=== PATIENT | female | born 1985 | race Caucasian/White ===

== ENCOUNTER 2017-11-10 06:43 | Inpatient (IN) ==
[2017-11-10] MEDS ORDERED: ceFAZolin 2,000 MG in PREMIX 1 EACH IV ONE (07:08)
[2017-11-10] MEDS ORDERED: CITRIC ACID/SODIUM CITRATE 30 ML UDCUP PO ONE (07:08)
[2017-11-10] MEDS ORDERED: FAMOTIDINE 20 MG/2 ML VIAL IV ONE (07:08)
[2017-11-10] MEDS: LACTATED RINGERS 1,000 ML IV SCH ×4 (07:41→23:52)
[2017-11-10] MEDS ORDERED: OXYTOCIN/LR 20 UNIT/1,000 ML BAG IV ONE ×3 (07:50→15:31)
[2017-11-10 07:53] LABS: Basophils # 0.1 10*3/uL (0.0-0.2); Basophils % 0.5 % (0.0-0.8); Eosinophils # 0.1 10*3/uL (0.0-0.87); Eosinophils % 1.2 % (0.00-10.9); Hematocrit 38.6 VOL% (35.7-47.0); Immature Granulocytes % 0.9 %; Immature Granulocytes Absolute 0.08 #; Lymphocytes % 21.4 % (21.3-54.2); Mean Corpuscular HGB Conc 33.7 GM/DL (32-36); Mean Corpuscular Hemoglobin 28 PG (27-34); Mean Platelet Volume 10.7 FL (9.6-12.0); Monocytes # 0.4 10*3/uL (0.11-0.8); Monocytes % 4.8 % (1.7-12.7); Neutrophils # 6.5 10*3/uL (1.4-7.4); Neutrophils % 71.2 % (38.7-73.9); Platelet Count 240 T/CUMM (130-400); Red Blood Count 4.65 MC/CUMM (3.8-5.5); Red Cell Distribution Width 14.8 % (9.3-17.3); White Blood Count 9.2 T/CUMM (4-12)
[2017-11-10 08:05] LABS: INR 0.9; PT Patient Result 9.5 SECS; Partial Thromboplastin Time 26.4 SECS (0-40)
[2017-11-10 08:30] LABS: Alanine Aminotransferase 14 U/L (13-56); Alkaline Phosphatase 120 U/L (45-117); Aspartate Amino Transferase 19 U/L (0-37); Calcium 8.6 MG/DL (8.5-10.1)
[2017-11-10 08:31] LABS: Albumin 2.6 G/DL (3.4-5.0); Bilirubin,Total < 0.39 MG/DL (0.2-1.0); Blood Urea Nitrogen 8 MG/DL (7-18); Glucose 73 MG/DL (74-106); Osmolality,Calculated 273.5 MOS/KG (273-304); Potassium 3.9 MMOL/L (3.5-5.1); Sodium 139 MMOL/L (136-145); Total Protein 6.6 G/DL (6.4-8.3)
[2017-11-10 08:49] LABS: Bilirubin,Direct < 0.100 MG/DL (0.0-0.20); Uric Acid 5.4 MG/DL (2.6-6.0)
[2017-11-10] MEDS ORDERED: ACETAMINOPHEN 325 MG TABLET PO PRN (15:29)
[2017-11-10] MEDS ORDERED: SIMETHICONE CHEW 80 MG TABLET PO PRN (15:29)
[2017-11-10] MEDS ORDERED: ONDANSETRON 4 MG/2 ML VIAL IV PRN (15:29)
[2017-11-10] MEDS ORDERED: RHO(D) IMMUNE GLOBULIN 300 MCG SYRINGE IM ONE (15:29)
[2017-11-10] MEDS ORDERED: MORPHINE 10 MG/10 ML VIAL ONE (15:30)
[2017-11-10 15:31] LABS: Apearance,Urine CLEAR (Clear); Bilirubin,Urine Negative (Negative); Blood, Urine Negative (Negative); Glucose,Urine (UA) Negative (Negative); Hyaline Casts,Urine 1 /LPF (0-3); Ketones,Urine 20 mg/dL (Negative); Mucus,Urine Occasional /LPF (Occasional); Nitrite,Urine Negative (Negative); Protein,Urine Negative; RBC,Urine 2 /HPF (0-4); Squamous Epithelial Cell,Urine Occasional /HPF (0-10); Urine Color Yellow (Yellow); Urine Specific Gravity 1.011 (1.001-1.035); Urine Urobilinogen < 2.0 EU/DL (0.2-1.0); WBC,Urine 1 /HPF (0-6)
[2017-11-10] MEDS ORDERED: ACETAMINOPHEN 1,000 MG/100 ML VIAL IV ONE (15:31)
[2017-11-10] MEDS ORDERED: fentaNYL 100 MCG/2 ML VIAL ONE (15:31)
[2017-11-10] MEDS ORDERED: PHENYLEPHRINE 1 MG/10 ML SYRINGE IV ONE (15:31)
[2017-11-10] MEDS ORDERED: LACTATED RINGERS 1,000 ML IV ONE (15:31)
[2017-11-10] MEDS ORDERED: ONDANSETRON 4 MG/2 ML VIAL ONE (15:31)
[2017-11-10] MEDS ORDERED: BUPIVACAINE SPINAL 0.75% 2 ML AMP SPINAL ONE (15:32)
[2017-11-10] MEDS: IBUPROFEN 800 MG TABLET PO PRN (17:17)
[2017-11-10] MEDS ORDERED: PROMETHAZINE 25 MG/1 ML VIAL ONE (20:04)
[2017-11-10] MEDS: ceFAZolin 1,000 MG in SYRINGE 1 EACH IV SCH (23:30)
[2017-11-10] MEDS: DOCUSATE SODIUM 100 MG CAPSULE PO SCH (23:30)
[2017-11-11] MEDS: IBUPROFEN 800 MG TABLET PO PRN ×2 (03:52→11:59)
[2017-11-11 07:28] LABS: Basophils % 0.3 % (0.0-0.8); Eosinophils # 0.1 10*3/uL (0.0-0.87); Hematocrit 30.1 VOL% (35.7-47.0); Immature Granulocytes % 0.6 %; Immature Granulocytes Absolute 0.06 #; Lymphocytes # 1.9 10*3/uL (1.4-4.0); Lymphocytes % 18.1 % (21.3-54.2); Mean Corpuscular HGB Conc 33.9 GM/DL (32-36); Mean Corpuscular Hemoglobin 28 PG (27-34); Mean Corpuscular Volume 82.7 FL (87-102); Mean Platelet Volume 10.6 FL (9.6-12.0); Monocytes # 0.5 10*3/uL (0.11-0.8); Monocytes % 4.9 % (1.7-12.7); Neutrophils # 7.9 10*3/uL (1.4-7.4); Neutrophils % 75.1 % (38.7-73.9); Platelet Count 194 T/CUMM (130-400); Red Blood Count 3.64 MC/CUMM (3.8-5.5); Red Cell Distribution Width 14.7 % (9.3-17.3); White Blood Count 10.5 T/CUMM (4-12)
[2017-11-11] MEDS: ceFAZolin 1,000 MG in SYRINGE 1 EACH IV SCH (07:52)
[2017-11-11] MEDS ORDERED: ceFAZolin 1,000 MG in SYRINGE 1 EACH IV ONE (08:00)
[2017-11-11 08:01] LABS: Hemoglobin 10.2 GM/DL (12.0-16.0)
[2017-11-11] MEDS: MULTIVITAMIN (PRENATAL) TABLET PO SCH (08:41)
[2017-11-11] MEDS: DOCUSATE SODIUM 100 MG CAPSULE PO SCH ×2 (08:41→21:28)
[2017-11-11] MEDS: MAGNESIUM HYDROXIDE SUSP 30 ML UDCUP PO PRN ×2 (08:41→21:28)
[2017-11-11] MEDS: oxyCODONE/ACETAMINOPHEN 5-325 MG TABLET PO PRN (21:29)
[2017-11-12] MEDS: oxyCODONE/ACETAMINOPHEN 5-325 MG TABLET PO PRN (04:36)
[2017-11-12 07:43] VITALS: BP 152/94
[2017-11-12] MEDS: DOCUSATE SODIUM 100 MG CAPSULE PO SCH (08:55)
[2017-11-12] MEDS: MAGNESIUM HYDROXIDE SUSP 30 ML UDCUP PO PRN (08:55)
[2017-11-12] MEDS: MULTIVITAMIN (PRENATAL) TABLET PO SCH (09:10)
[2017-11-12] MEDS: IBUPROFEN 800 MG TABLET PO PRN (09:11)
[2017-11-12] MEDS ORDERED: FUROSEMIDE 20 MG TABLET PO ONE (11:31)
[2017-11-12] MEDS ORDERED: POTASSIUM CHLORIDE 10 MEQ TABLET PO ONE (11:38)
[2017-11-13] MEDS ORDERED: FUROSEMIDE 20 MG TABLET PO SCH (09:00)
[2017-11-13] MEDS ORDERED: POTASSIUM CHLORIDE 10 MEQ TABLET PO SCH (09:00)
== END 2017-11-12 12:55 | disposition home or self-care (01) | DRG 540 ==
LOC: N.LDOUT 06:43 → N.LD 06:49 → N.OB 11-11 08:34
PROVIDERS: ADMIT Obstetrics & Gynecology; ATTEND Obstetrics & Gynecology
PROC: LDCSECT (ICD-10-PCS; 2017-11-10 11:30)